=== PATIENT | male | born 1990 | race American Indian/Alaskan Native ===

== ENCOUNTER 2019-09-28 15:43 | Emergency (ER) | payer SELFPAY ==
[2019-09-28 15:51] VITALS: BP 116/79
--- NOTE | 2019-09-28 16:59 | Emergency Department Report ---
[facility] Chief Complaint: Eye Problems Stated Complaint: PUFFY EYES/URINATION PAIN Time Seen by Provider: 09/28/19 16:51 Duration: 2 Days Side: Bilateral Severity: moderate Symptoms: Yes Eye Itching, Yes Eye Redness, Yes Eye Pain, Yes Mucous Drainage, Yes Purulent Drainage, Yes Preceding URI, Yes H/O Allergic Rhinitis, No Blurred Vision, No Contact Lens Use, No Trauma, No Fever, No Headache Other History: Bilateral burning itching erythema x3 days exacerbated by rubbing. Noted purulent draining with dry crusted eyes this a.m. There is no change in visual acuity. No decrease in vision. ED Review of Systems ROS: Stated complaint: PUFFY EYES/URINATION PAIN Other details as noted in HPI Constitutional: denies: chills, fever Eyes: eye pain, eye discharge, other (visual acuity, 20/30 bilat ). denies: vision change ENT: denies: ear pain, throat pain Respiratory: denies: cough, shortness of breath, wheezing Cardiovascular: denies: chest pain, palpitations Endocrine: no symptoms reported Gastrointestinal: denies: abdominal pain, nausea, diarrhea Genitourinary: denies: urgency, dysuria Musculoskeletal: denies: back pain, joint swelling, arthralgia Skin: as per HPI Neurological: denies: headache, weakness, paresthesias Psychiatric: denies: anxiety, depression Hematological/Lymphatic: denies: easy bleeding, easy bruising ED Past Medical Hx - Past Medical History Previous Medical History?: No Hx Heart Attack/AMI: No Hx Congestive Heart Failure: No Hx Diabetes: No Hx Asthma: No Hx COPD: No Hx Dementia: No Hx HIV: No - Surgical History Past Surgical History?: No - Social History Smoking Status: Current Every Day Smoker Substance Use Type: Alcohol, Marijuana - Medications Home Medications: Home Medications Medication Instructions Recorded Confirmed Last Taken Type Acetaminophen [Acetaminophen TAB] 1,000 mg PO BID 12/24/12 12/24/12 12/23/12 History Famotidine [Pepcid] 10 mg PO BID #30 tablet 01/03/13 Unknown Rx cephALEXin [Keflex] 500 mg PO Q6H #28 capsule 01/03/13 Unknown Rx oxyCODONE /ACETAMINOPHEN [Percocet 1 tab PO Q4H PRN #20 tablet 01/03/13 Unknown Rx 5/325 mg] Azithromycin 250 mg PO QDAY #14 tablet 06/11/18 Unknown Rx Ibuprofen [Motrin 800 MG tab] 800 mg PO Q8HR PRN #30 tablet 09/28/19 Unknown Rx Ketotifen Fumarate [Zaditor] 1 drop OU BID #5 ml 09/28/19 Unknown Rx Polymyxin B Sulf/Trimethoprim 1 drop OU Q4H 7 Days #10 ml 09/28/19 Unknown Rx [Polytrim Eye Drops] [facility] Exam - Exam General: Vital signs noted. No distress. Alert and acting appropriately. Eye Exam: Both Injection, Both EOMI, Both Purulent Discharge, Neither Chemosis, Neither Abnormal Pupil, Neither Eye Foreign Body, Neither Lid Foreign Body, Neither Corneal Edema, Neither Photophobia HEENT: No Nasal Congestion, No Pharyngeal Erythema Remainder of HEENT: Normal Lungs: Yes Clear Lung Sounds, Yes Good Air Exchange, No Wheezes, No Stridor, No Cough, No Nasal Flaring, No Retractions, No Use of Accessory Muscles ED Course Vital Signs 09/28/19 15:48 Temperature 97.9 F Pulse Rate 81 Respiratory 18 Rate Blood Pressure 116/79 O2 Sat by Pulse 98 Oximetry ED Medical Decision Making - Medical Decision Making this conjunctivitis, bacterial, plan polytrim, ibuprofen otc, follow up with ophthalmology in 2-3 days , pt verbalized agreement and understanding of discharge plan. pt verbalized agreement and understanding of discharge plan. Critical care attestation.: If time is entered above; I have spent that time in minutes in the direct care of this critically ill patient, excluding procedure time. ED Disposition Clinical Impression: Bacterial conjunctivitis of both eyes Disposition: DC-01 TO HOME OR SELFCARE Is pt being admited?: No Does the pt Need Aspirin: No Condition: Stable Instructions: Conjunctivitis (ED) Prescriptions: Ibuprofen [Motrin 800 MG tab] 800 mg PO Q8HR PRN #30 tablet PRN Reason: pain Polymyxin B Sulf/Trimethoprim [Polytrim Eye Drops] 1 drop OU Q4H 7 Days #10 ml Ketotifen Fumarate [Zaditor] 1 drop OU BID #5 ml Referrals: LIANNE PARKS MD [Staff Physician] - 3-5 Days Forms: Work/School Release Form(ED) Time of Disposition: 17:11
== END 2019-09-28 17:27 | disposition home or self-care (01) ==
LOC: ED 15:43
DX: H10.9 Unspecified conjunctivitis (principal); F17.200 Nicotine dependence, unspecified, uncomplicated; F12.10 Cannabis abuse, uncomplicated
CPT/HCPCS: 99282